=== PATIENT | female | born 1980 | race Caucasian/White ===

== ENCOUNTER 2020-03-18 16:05 | Emergency (ER) | payer OTHER ==
[~2020-03-18] VITALS: Ht 175.3 cm; Wt 90.7 kg
[~2020-03-18 16:05] MED LIST: AMOXICILLIN875 MG PO; AMOXIL 875 MG875 M2 PO; BACTRIM DS TAB1 EACH PO; IBUPROFEN 800800 MG PO; KEFLEX500 MG PO; NORCO 5-325 TA1 EACH PO; PRENATAL; TRAMADOL 50 MG50 MG PO; TRINATE TABLET1 TAB PO
[2020-03-18 17:33] VITALS: BP 144/80
== END 2020-03-18 17:30 | disposition home or self-care (01) ==
LOC: M.ERS 16:05
DX: Z20.828 Contact with and (suspected) exposure to other viral communicable diseases (principal)